=== PATIENT | male | born 1965 | race Caucasian/White ===

== ENCOUNTER → 2020-11-04 | Outpatient (CLI) | payer MEDICARE, OTHER ==
[~2020-11-04] MED LIST: ASPIRIN EC81 MG PO; ATORVASTATIN CA10 MG PO; CITALOPRAM HBR20 MG PO; CYMBALTA 30 MG30 MG PO; DESYREL 50 MG T50 MG PO; DIOVAN160 MG PO; HYTRIN CAP 1 MG1 MG PO; NEURONTIN300 MG PO; NEURONTIN600 MG PO; ZANAFLEX2 MG PO
== END ==
LOC: KOH-I 14:05
DX: M54.2 Cervicalgia (principal); M54.9 Dorsalgia, unspecified; R05 Cough; M47.812 Spondylosis without myelopathy or radiculopathy, cervical region; M47.816 Spondylosis without myelopathy or radiculopathy, lumbar region
CPT/HCPCS: 71046; 72040; 72070; 72100